=== PATIENT | female | born 1990 | race Two or more races ===

== ENCOUNTER 2022-07-09 00:21 | Emergency (ER) | payer OTHER ==
[~2022-07-09] VITALS: Ht 157.5 cm; Wt 52.2 kg
[2022-07-09] MEDS ORDERED: IBUP-1955 PO (01:40)
[2022-07-09] MEDS ORDERED: BACI/NEOM/POLY B OINT PKT 1 UDPKT PACKET TP ONE (02:00)
[2022-07-09] MEDS ORDERED: ACETAMINOPHEN 325 MG TABLET PO ONE (02:00)
[2022-07-09] MEDS ORDERED: TDAP [DIPH/PERTUSSIS/TET] 0.5 ML VIAL IM ONE ×2 (02:00→02:24)
[2022-07-09] MEDS ORDERED: ACETAMINOPHEN ES 500 MG TABLET ONE (02:24)
--- NOTE | 2022-07-09 04:35 | NUR ---
Patient discharged to [facility] in stable condition. Written and verbal after care instructions given. Patient verbalizes understanding of instruction.
[2022-07-09 04:36] VITALS: BP 112/70
== END 2022-07-09 04:36 ==
LOC: ER 00:23
DX: S00.31XA Abrasion of nose, initial encounter (principal); Z79.1 Long term (current) use of non-steroidal anti-inflammatories (NSAID); V43.92XA Unspecified car occupant injured in collision with other type car in traffic accident, initial encounter; Y93.89 Activity, other specified; Y92.89 Other specified places as the place of occurrence of the external cause; Y99.8 Other external cause status
CPT/HCPCS: 70450-TC; 70486-TC; 71045-TC; 72125-TC; 90715